=== PATIENT | female | born 1960 | race African-American/Black ===

== ENCOUNTER 2021-12-21 10:17 | Emergency (ER) | payer BC, SELFPAY ==
[~2021-12-21] VITALS: Ht 157.5 cm; Wt 148.0 kg
[2021-12-21 10:42] VITALS: BP 155/60
[2021-12-21] MEDS ORDERED: METHYLPREDNISOLONE SOD SUCC 125 MG/2 ML VIAL IV ONE (11:00)
[2021-12-21] MEDS ORDERED: FAMOTIDINE 20MG/2ML VIAL IV ONE (11:00)
[2021-12-21] MEDS ORDERED: DIPHENHYDRAMINE 50MG/ML VIAL IV ONE (11:00)
[2021-12-21 11:31] LABS: BASOPHILS % 0.6 % (0.0-2.0); EOSINOPHILS % 0.7 % (0.0-5.0); HEMOGLOBIN. 12.7 g/dL (12.0-16.0); LYMPHOCYTES % 35.8 % (20.0-50.0); MEAN CORPUSCULAR HEMOGLOBIN 31.9 pg (28.0-32.0); MEAN CORPUSCULAR VOLUME 95.9 fL (81.0-99.0); MEAN PLATELET VOLUME 9.2 fl (7.4-10.4); MONOCYTES % 6.7 % (2.0-8.0); NEUTROPHILS % 56.2 % (40.0-76.0); PLATELET 204 x1000/uL (130-400); RED BLOOD CELL COUNT 3.96 mill/uL (4.2-5.4); RED CELL DISTRIBUTION WIDTH 14.2 % (11.6-14.6)
[2021-12-21 11:39] LABS: CHLORIDE 106 mEq/L (98-107)
[2021-12-21] MEDS ORDERED: P50 PO (13:16)
== END 2021-12-21 14:58 | disposition home or self-care (01) ==
LOC: ER 10:17
DX: T78.49XA Other allergy, initial encounter (principal); X58.XXXA Exposure to other specified factors, initial encounter; R22.0 Localized swelling, mass and lump, head
CPT/HCPCS: 36415; 80053; 85025; 96374; 96375; 99284; J1200; J2930; J3490

== ENCOUNTER 2024-07-20 00:36 | Emergency (ER) | payer BC ==
[~2024-07-20 00:36] MED LIST: P50 PO
[2024-07-20 01:26] VITALS: BP 161/69; PULSE 62; RESP 20; O2SAT 100
[2024-07-20] MEDS ORDERED: DIPH50CA41 MT (01:26)
[2024-07-20] MEDS ORDERED: P50 MT (01:26)
[2024-07-20] MEDS: METHYLPREDNISOLONE SOD SUCC 125MG/2ML (ACT-O-VIAL) IV ONE (01:50)
[2024-07-20] MEDS: DIPHENHYDRAMINE 50MG/ML VIAL IV ONE (01:50)
[2024-07-20] MEDS: EPINEPHRINE 1:1000 1 MG/ML AMP INJ ONE (01:50)
== END 2024-07-20 05:45 | disposition home or self-care (01) ==
LOC: ER 00:36
DX: T78.3XXA Angioneurotic edema, initial encounter (principal); I10 Essential (primary) hypertension; Z88.5 Allergy status to narcotic agent; X58.XXXA Exposure to other specified factors, initial encounter
CPT/HCPCS: 96374; 96375; 99284; J1200; J3490; J2919; Z7610 ×3